=== PATIENT | female | born 1930 | race Caucasian/White ===

== ENCOUNTER 2017-11-07 09:59 | Inpatient (IN) | payer OTHER, MEDICARE ==
[~2017-11-07] VITALS: Ht 170.2 cm; Wt 70.8 kg
--- NOTE | ~2017-11-07 | H ---
[facility] [place] [address] HISTORY AND PHYSICAL Name: NORY LONGO Room #: 515-P [facility] IN M.R.#: [id number] Admission: 11/07/17 Attend Phys: Jeffery Lindsey MD Discharge: Date of : 31 Report #: [id number] THIS REPORT FOR: //name// CC: Jeffery Garcia DATE OF SERVICE: 11/07/2017 HISTORY OF PRESENT ILLNESS: This is an 87-year-old female who initially presented to [facility] ER after a fall at the grocery store. She reports turning quickly and somehow lost her balance, landing on her left side. She had immediate left upper extremity pain, which prompted her to present to the Emergency Department. She was diagnosed with a left humerus fracture and underwent ORIF on 10/31/2017. She is no weightbearing left upper extremity. Postoperatively, she went into acute respiratory failure. She required BiPAP initially. She was able to be titrated down to nasal cannula, which she is now on 2 liters. She also had a postoperative ileus. She was treated with conservative measures. She had an NG tube in place that has since been discontinued. She is able to tolerate a regular diet. She has had a bowel movement since that time with most recent small bowel movement this morning. Due to her generalized debility, she is now being admitted to an acute inpatient rehabilitation unit for further functional mobility. Premorbidly, the patient lives at home with her friend/roommate in a house. She was independent with all ADLs and she and her roommate share the IADL responsibilities. The patient utilized no assistive devices prior. She does report history of recurrent falls, she thinks at least 3 falls in the last 6 months. She is unsure what happened when she had these falls. She denies loss of consciousness or hitting her head with her fall. PAST MEDICAL HISTORY: Recurrent falls, hypertension, hyperlipidemia, degenerative joint disease, vitamin D deficiency, asthma, hypothyroidism, GERD, depression. HABITS: The patient is nonsmoker, nondrinker, no illicit drug use. CODE STATUS: Full code. ALLERGIES: No known drug allergies. CURRENT MEDICATIONS: Tylenol 650 q.4h. p.r.n., Norvasc 5 mg daily, Lipitor 10 mg daily, aspirin 81 mg daily, carvedilol 1 tablet twice a day, calcium 1200 mg daily, vitamin D 1 capsule daily, fish oil 1200 mg daily, Advair 250/50 one puff b.i.d., Pemberton 5/325 one to two tablets q.4h. p.r.n., Synthroid 1 tablet daily, multivitamin daily, omega 3 daily, Paxil mg daily, MiraLax daily, senna daily, triamcinolone cream topical twice a day to right upper extremity, Percocet 5/325 one tablet q.8h. p.r.n., Protonix 40 mg [address] [address] HISTORY AND PHYSICAL Name: NORY LONGO Room #: 515-P [facility] IN M.R.#: [id number] Admission: 11/07/17 Attend Phys: Jeffery Lindsey MD Discharge: Date of : 31 Report #: [id number] SOCIAL HISTORY: The patient lives in a house with her roommate and friend named Karen. There are 2 steps to enter from the front and 1 step to enter from the garage, zero steps once inside the house, all living is on 1 level. REVIEW OF SYSTEMS: The patient denies headache, dizziness, numbness, tingling, cough, shortness of air, chest pain, abdominal pain, nausea. She does report constipation and fullness in her abdomen. She denies dysuria or urine retention. She does report a rash to her right upper extremity. PHYSICAL EXAMINATION: VITAL SIGNS: Blood pressure 113/54, respirations 20, pulse 60, temperature 37.0, she is 93% oxygen on 2 liters per nasal cannula. HEENT: Head is normocephalic. EYES: EOMs are intact. No icterus. ENT: No sinus tenderness. CHEST: Lungs are diminished at bases. No crackle, no wheeze. CARDIAC: S1, S2. ABDOMEN: Bowel sounds are positive. She is soft. She is nontender, nondistended. GENITOURINARY: Deferred. SKIN: She does have a 6 x 6 inch area on her right upper extremity that is slightly raised red rough area. No tenderness with palpation. No drainage. EXTREMITIES: Functional range of motion right upper extremity and bilateral lower extremities, no clonus, able to lift bilateral lower extremities and to gravity. She has no lower extremity edema. Negative Homans sign. No tenderness to palpation. She does have a weakened disc recordist on the right. Left upper extremity is in a cast with sling. She does have good capillary refill in the left hand. Sensation intact. Able to move her fingers, transferring with mod assist. NEUROLOGIC: Pleasant affect. She is alert x 4, but does appear to be a poor historian. IMPRESSION: 1. Medical complexity with generalized debilitation. 2. Left upper extremity humerus fracture, status post open reduction internal fixation on 10/31/2017, no weightbearing left upper extremity. 3. Postoperative acute respiratory failure, improving. 4. Postoperative ileus, resolved. 5. Constipation. 6. Hypertension. 7. Hyperlipidemia. 8. Hypothyroidism. 9. Degenerative joint disease. 10. Recurrent falls. [facility] [address] [place] [address] HISTORY AND PHYSICAL Name: NORY LONGO Room #: 515-P ADM IN M.R.#: [id number] Admission: 11/07/17 Attend Phys: Jeffery Lindsey MD Discharge: Date of : 31 Report #: [id number] PLAN: The patient has been admitted to acute inpatient rehabilitation for physical and occupational therapies. We will also add in a speech therapy consult for cognition eval with the patient's goal to return back to her premorbid home setting. She has a followup with orthopedic services in 1 week. There are no dressing change orders. We are to keep current dressing in place until orthopedic evaluation. She will have hospitalist follow for her acute medical issues. Please see orders. <ELECTRONICALLY SIGNED> By: GREGORY Valverde 11/14/17 1110 1500 1620 GREGORY Valverde /juanjo
--- NOTE | ~2017-11-07 | H ---
[facility] [place] [address] HISTORY AND PHYSICAL Name: NORY LONGO Room #: 515-P [facility] IN M.R.#: [id number] Admission: 11/07/17 Attend Phys: Jeffery Lindsey MD Discharge: Date of : 31 Report #: [id number] THIS REPORT FOR: //name// CC: Jeffery Garcia DATE OF SERVICE: 11/07/2017 HISTORY OF PRESENT ILLNESS: The patient has been admitted for acute in-hospital inpatient rehabilitation. Please see the full dictation from Natasha Colbert yesterday. The patient had a fall, apparently had a grocery store and went to [facility] and was diagnosed with a left humerus fracture, undergoing ORIF 10/31/2017. She had complications postoperatively with acute respiratory failure, requiring BiPAP as well as postoperative ileus. She had an NG tube in place. The NG tube has been removed and she has been on tapering doses of oxygen, still on 2 liters. She is nonweightbearing left upper extremity. She is noted to have medical complexity with generalized debilitation and has been admitted for acute in-hospital inpatient rehabilitation. As far as past medical history, habits, code status, allergies, social history, please see the above note. She has been living in a house with her roommate, although she tells me that she actually lives by herself and that the lady friend is frequently over and closely involved. There are 2 steps in, apparently. She had a cane that she uses on occasion. MEDICATIONS: Please see the full medication listing. This includes vitamins, herbals, and supplements. REVIEW OF SYSTEMS: Did not offer any current complaints of chest pain, shortness of breath or abdominal discomfort. PHYSICAL EXAMINATION: GENERAL: Pleasant, somewhat verbose, thin, 87-year-old white female in no obvious distress. VITAL SIGNS: Blood pressure 129/58, temperature is 98.3, pulse 51, respirations 16, alert, pleasant. HEENT: Appeared to be benign. CHEST: Sounded clear to auscultation. She is currently on nasal prong O2, 2 liters. CARDIOVASCULAR: Sounded regular rate and rhythm. ABDOMEN: Bowel sounds positive, nontender. GENITOURINARY AND RECTAL: Deferred. EXTREMITIES: Left upper extremity is in a splint, short arm and can move the fingers and thumb. Functional range of motion of the right upper extremity without focal weakness. Lower extremities, no focal calf swelling. Strength is a grade 4 to 4-/5. She transfers with max assist[place] [address] HISTORY AND PHYSICAL Name: NORY LONGO Room #: 515-P [facility] IN ..#: [id number] Admission: 11/07/17 Attend Phys: Jeffery Lindsey MD Discharge: Date of : 31 Report #: [id number] assist. She has done some short distance ambulation with mod assist. ASSESSMENT: 1. Medical complexity with generalized debilitation. 2. Left upper extremity humerus fracture, status post open reduction and internal fixation on 10/31/2017, nonweightbearing. 3. Postoperative acute respiratory failure, improving. 4. Postoperative ileus, resolved. 5. Constipation. 6. Hypertension. 7. Hyperlipidemia. 8. Hypothyroidism. 9. Degenerative joint disease. 10. Recurrent falls. PLAN: The patient is seen for the post-admission physician evaluation. There are no relevant changes since the preadmission screening. Please see the above review of prior and current medical and functional conditions and comorbidities. Please see the patient's previous and current functional status. As far as risk of complication, she has the multiple medical comorbidities as noted above. Initial plan of care involves the interdisciplinary acute inpatient rehabilitation program with goal of maximizing her functional independence, so she can hopefully return back to her prior living situation. Measurable functional goals would be for her to become modified independent with basic mobility and ADLs. Nonweightbearing on that left upper extremity. Also to improve her overall endurance. Prognosis is reasonably good with estimated length of stay probably at least 10 days to 2 weeks. Potential barriers would include her multiple medical comorbidities and decreased functional status. The patient meets diagnostic criteria for an acute in-hospital inpatient rehabilitation stay. She meets the medical necessity criteria and we will have Internal Medicine closely involved as well as additional consultation as needed. She does have the tolerance for therapies and has appropriate discharge goals back to the home setting. <ELECTRONICALLY SIGNED> By: Jeffery Lindsey MD 11/18/17 1455 1227 1257 Jeffery Lindsey MD /[facility]
--- NOTE | ~2017-11-07 | HC ---
[facility] [place] [address] CONSULTATION Name: NORY LONGO Room #: 515-P [facility] IN M.R.#: [id number] Admission: 11/07/17 Attend Phys: Jeffery Lindsey MD Discharge: 11/21/17 Date of : 31 Report #: [id number] THIS REPORT FOR: //name// CC: Jeffery Lindsey [facility] DATE OF SERVICE: 11/08/2017 ATTENDING PHYSICIAN: Jeffery Lindsey MD. MUSIC HISTORIAN: Marco Van, PhD. CLINICAL PRESENTATION: The patient is an 87-year-old female admitted to the rehabilitation unit at [facility] for comprehensive inpatient rehabilitation program to improve functional mobility, activities of daily living and self-care and mental status secondary to deficits from medical complexity and generalized debility. She was initially admitted following a left upper extremity humerus fracture and is status post open reduction internal fixation. Diagnostic impressions at admission included postoperative acute respiratory failure, improving; postoperative ileus, resolved; constipation; hypertension; hyperlipidemia; hypothyroidism; degenerative joint disease and recurrent falls. A complete description of her medical condition and history can be found in her medical record. Neuropsychological consultation was requested to provide assistance in the assessment of cognitive and emotional status and to provide recommendations and services. Prior to this most recent event, she reports driving and living independently in her own home. She indicates having been independent with all instrumental activities of daily living. Memory of her fall was at a grocery store when she fell, injuring her arm. The patient completed a master's degree from the [employer]. 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 She reports a good social support network. The patient had not and has no children. TECHNIQUES UTILIZED: Clinical interview, review of medical records, staff consultation and behavioral observation, mini mental status exam 2 standard version, and verbal fluency assessment (letter and category). EXAMINATION FINDINGS: The patient was alert and cooperative with the assessment. There is no evidence of aphasia. She does not report auditory or visual hallucinations. There is no evidence of thought disorder. She accurately describes events surrounding her admission. Her symptoms include variability in energy. She does not report problems with sleep, appetite, depression or anxiety. No prior treatment for mood disorder is reported. [address] [address] CONSULTATION Name: NORY LONGO Room #: 515-P [facility] IN M.R.#: [id number] Admission: 11/07/17 Attend Phys: Jeffery Lindsey MD Discharge: 11/21/17 Date of : 31 Report #: [id number] Normal variability in memory and word finding is described. She reports that pain in her arm has been disruptive of sleep. Her performance on the MMSE 2 brief version is in the impaired range of function with a raw score of 12/16, T score 28. Percentile rank is 1. She was 3/3 for initial registration, 5/5 for orientation to time, 4/[address] and 0/3 for immediate recall of 3 items after a brief time delay and distraction. Performance on the MMSE 2 standard version is extremely low with a raw score of 21 of 30. She was 2/5 for serial sevens, 2/2 for naming, 1/1 for repetition, 3/3 for auditory comprehension. She could read and follow a single command. The patient had difficulty in copying a simple geometric design because of the awkwardness of her position as a result of having had the arm fracture. She was able to dictate a sentence. Performance in verbal fluency assessment was extremely low for letter fluency with a raw score of 10, T score 25 and percentile rank of 1. Category fluency improved with a raw score 22 and a T score of 31, which is at 3rd percentile. Overall, total verbal fluency was less than 1% with a raw score of 32 and a T score of 24. The patient is presenting with the decline in cognition. Deficits are noted with memory, concentration and verbal fluency, which suggests deficits in executive function. She does not report difficulties in cognition, which could indicate diminished insight. DIAGNOSTIC IMPRESSION: Neurocognitive disorder, unspecified, without behavior disorder - extent to be determined, likely in the mild to moderate range. RECOMMENDATIONS: The patient will likely require increased assistance with medication and nutrition upon her return home. A more thorough neuropsych assessment may be of benefit to clarify cognitive functioning. She reports having been very independent up until this most recent medical event. However, increased help will likely be necessary for her to maintain safety. The use of compensatory strategies may also aid her compensation. Thank you very much for allowing me to provide the consultation on this patient. <ELECTRONICALLY SIGNED> By: Marco Van, PhD 11/22/17 1400 1602 01 Marco Van, PhD /nt
--- NOTE | ~2017-11-07 | PLAN ---
[facility] [place] [address] REHAB UNIT PLAN OF CARE Name: NORY LONGO Room #: 515-P ADM IN M.R.#: [id number] Admission: 11/07/17 Attend Phys: Jeffery Lindsey MD Discharge: Date of : 31 Report #: [id number] THIS REPORT FOR: //name// CC: Jeffery Garcia DATE OF SERVICE: 11/10/2017 PROGRESS NOTE AND OVERALL PLAN OF CARE SUBJECTIVE: The patient is seen back today in followup. Nursing is concerned regarding a coarse cough. OBJECTIVE: VITAL SIGNS: Last recorded temperature is 37.2, pulse 60, respirations 18, blood pressure 170/70. She is now on 4 liters nasal prong O2. Breath sounds are somewhat decreased. She is in no distress. CARDIAC: Regular rate and rhythm. ABDOMEN: Bowel sounds positive, nontender. MUSCULOSKELETAL: Left upper extremity has the splint in place. She has been working in therapies with transfers, mod assist. Gait, min assist to 150 feet with a pyramid cane. There is no calf swelling, no palpable cord. Dependent for lower body dressing, max assist for upper body dressing. ASSESSMENT: 1. Medical complexity with generalized debilitation. 2. Left upper extremity humerus fracture, status post open reduction and internal fixation on 10/31/2017. Nonweightbearing. 3. Postoperative acute respiratory failure. She was on 2 liters and now is on 4 liters. Nursing notes a coarse cough. We will obtain a chest x-ray and have the nursing staff keep the hospitalist inform. 4. Postoperative ileus has resolved. 5. Constipation. 6. Hypertension. 7. Hyperlipidemia. 8. Hypothyroidism. 9. Degenerative joint disease. 10. Recurrent falls. PLAN: The overall plan of care is based on the preadmission screen, post-admission physician evaluation, and information garnered from therapy assessments. 1. Estimated length of stay is at least 10 days to 2 weeks pending progress. 2. Medical prognosis is reasonably good. 3. Anticipated interventions includes the interdisciplinary acute inpatient rehabilitation program with the goal of maximizing the patient's functional [address] [address] REHAB UNIT PLAN OF CARE Name: NORY LONGO Room #: 515-P [facility] IN M.R.#: [id number] Admission: 11/07/17 Attend Phys: Jeffery Lindsey MD Discharge: Date of : 31 Report #: [id number] independence. 4. Anticipated functional outcomes would be for the patient to become modified independent with transfers, mobility and ADLs, so she can return back to the home setting. 5. Discharge destination is back to the home setting. She does have a closely involved lady friend and in her house there are 2 steps in. 6. Expected therapy by discipline includes PT and OT as well as speech therapy. Anticipating 1 hour per day each five days a week throughout the duration of the acute inpatient rehabilitation stay. We may be able to decrease the speech therapy some in favor of more PT and OT. We will meet with the rehab therapy team tomorrow. We will also need to clarify with the therapy team regarding her Orthopedic followup. <ELECTRONICALLY SIGNED> By: Jeffery Lindsey MD 11/18/17 1455 0803 0900 Jeffery Lindsey MD /nt
[2017-11-07 14:00] VITALS: BP 113/54
[2017-11-07] MEDS ORDERED: TYLENOL325 MG PO (15:49)
[2017-11-07] MEDS ORDERED: NORVASC5 MG PO (15:50)
[2017-11-07] MEDS ORDERED: LIPITOR 20 MG T20 M1 PO (15:51)
[2017-11-07] MEDS ORDERED: BAYER CHEWABLE81 MG PO (15:52)
[2017-11-07] MEDS ORDERED: [UNRECOGNIZED DRUG - OTHER] TOP (15:59)
[2017-11-07] MEDS ORDERED: TUMS PO (16:01)
[2017-11-07] MEDS ORDERED: CARVEDILOL3.125 MG PO (16:04)
[2017-11-07] MEDS ORDERED: VITAMIN D2000 UNIT PO (16:07)
[2017-11-07] MEDS ORDERED: FISH OIL 1,001000 M2 PO (16:08)
[2017-11-07] MEDS ORDERED: ADVAIR HFA 230M12 GM INH (16:12)
[2017-11-07] MEDS ORDERED: NORCO 5-325 TA1 EACH PO (16:15)
[2017-11-07] MEDS ORDERED: SYNTHROID100 MC1 PO (16:23)
[2017-11-07] MEDS ORDERED: UNICOMPLEX M TA1 TA1 PO (16:23)
[2017-11-07] MEDS ORDERED: PERCOCET PO (16:25)
[2017-11-07] MEDS ORDERED: PROTONIX40 M1 PO (16:25)
[2017-11-07] MEDS ORDERED: MIRALAX17 GM PO (16:27)
[2017-11-07] MEDS ORDERED: PAXIL10 MG PO (16:27)
[2017-11-07] MEDS ORDERED: SENNA8.6 MG PO (16:28)
[2017-11-07] MEDS ORDERED: TRIAMCINOLONE A80 G2 TOP (16:30)
[2017-11-07 21:00] VITALS: BP 147/64
[2017-11-08 06:30] LABS: HEMATOCRIT 29.6 % (37.0-47.0); HEMOGLOBIN 10.1 gm/dL (12.0-15.0); MCH 31.7 pg (26.0-34.0); MCHC 33.9 g/dL (28.0-37.0); MCV 93.3 fL (80.0-100.0); RBC 3.17 mil/uL (4.20-5.00); RDW 13.4 % (10.5-14.5)
[2017-11-08 06:43] LABS: CALCIUM 9.4 mg/dL (8.5-10.1); CREATININE 0.7 mg/dL (0.6-1.0)
[2017-11-08 07:30] VITALS: BP 129/58
[2017-11-08 21:02] VITALS: BP 109/70
[2017-11-09 16:38] VITALS: BP 146/64
[2017-11-09 21:22] VITALS: BP 170/70
[2017-11-10 07:30] VITALS: BP 145/69
[2017-11-10 15:05] VITALS: BP 116/59
[2017-11-10 19:28] VITALS: BP 126/60
[2017-11-11 08:00] VITALS: BP 151/72
[2017-11-11 17:00] VITALS: BP 144/63
[2017-11-11 19:30] VITALS: BP 135/55
[2017-11-12 08:15] VITALS: BP 180/71
[2017-11-12 11:09] VITALS: BP 119/48
[2017-11-12 20:25] VITALS: BP 138/66
[2017-11-13 07:33] VITALS: BP 135/58
[2017-11-13 20:20] VITALS: BP 136/62
[2017-11-14 06:17] LABS: ABSOLUTE NEUTROPHILS 4.1 thou/uL (1.4-8.2); BASOPHILS 0.9 % (0.0-2.0); EOSINOPHILS 6.1 % (0.0-3.0); HEMATOCRIT 29.5 % (37.0-47.0); HEMOGLOBIN 10.3 gm/dL (12.0-15.0); LYMPHOCYTES 22.8 % (24.0-44.0); MCH 32.5 pg (26.0-34.0); MCHC 34.9 g/dL (28.0-37.0); MCV 93.1 fL (80.0-100.0); MONOCYTES 9.7 % (1.0-8.0); PLATELET COUNT 234 thou/uL (150-400); POLYS 60.5 % (36.0-66.0); RBC 3.17 mil/uL (4.20-5.00); WBC 6.8 thou/uL (4.0-11.0)
[2017-11-14 06:29] LABS: CALCIUM 9.8 mg/dL (8.5-10.1); CREATININE 0.7 mg/dL (0.6-1.0); MAGNESIUM 1.6 mg/dL (1.8-2.4); POTASSIUM 4.1 mmol/L (3.5-5.1)
[2017-11-14 07:10] VITALS: BP 148/64
[2017-11-14 20:19] VITALS: BP 137/55
[2017-11-15 07:30] VITALS: BP 158/73
[2017-11-15 16:38] VITALS: BP 160/51
[2017-11-15 19:40] VITALS: BP 133/45
[2017-11-16 19:28] VITALS: BP 141/55
[2017-11-17 07:21] VITALS: BP 140/70
[2017-11-17 15:32] VITALS: BP 110/70
[2017-11-17 20:40] VITALS: BP 150/61
[2017-11-18 07:30] VITALS: BP 146/62
[2017-11-18 19:45] VITALS: BP 134/82
[2017-11-19 08:30] VITALS: BP 143/69
[2017-11-19 19:34] VITALS: BP 134/67
[2017-11-20 06:12] LABS: ABSOLUTE NEUTROPHILS 3.2 thou/uL (1.4-8.2); BASOPHILS 0.8 % (0.0-2.0); HEMATOCRIT 34.3 % (37.0-47.0); HEMOGLOBIN 11.5 gm/dL (12.0-15.0); LYMPHOCYTES 27.5 % (24.0-44.0); MCH 31.6 pg (26.0-34.0); MCHC 33.4 g/dL (28.0-37.0); MCV 94.5 fL (80.0-100.0); MONOCYTES 9.9 % (1.0-8.0); PLATELET COUNT 201 thou/uL (150-400); POLYS 53.8 % (36.0-66.0); RBC 3.63 mil/uL (4.20-5.00); RDW 14.5 % (10.5-14.5); WBC 5.9 thou/uL (4.0-11.0)
[2017-11-20 06:20] LABS: CALCIUM 10.3 mg/dL (8.5-10.1); CREATININE 0.8 mg/dL (0.6-1.0); MAGNESIUM 1.7 mg/dL (1.8-2.4); POTASSIUM 4.2 mmol/L (3.5-5.1)
[2017-11-20 08:38] VITALS: BP 183/68
[2017-11-20] MEDS ORDERED: COLACE100 MG PO (09:25)
[2017-11-20] MEDS ORDERED: LIDOPATCH1 EACH TRANSDERM (09:25)
[2017-11-20] MEDS ORDERED: CLARITIN10 MG PO (09:25)
[2017-11-20] MEDS ORDERED: MUCINEX600 MG PO (09:25)
[2017-11-20 10:42] VITALS: BP 183/68
[2017-11-20 20:00] VITALS: BP 139/52
[2017-11-21 09:38] VITALS: BP 168/78
[2017-11-21 10:28] VITALS: BP 183/68
== END 2017-11-21 10:02 | disposition home health service (06) | DRG 562 ==
LOC: ENTRNSPT 11-21 09:20 → EDTRNSPTSTS 11-21 09:21
PROVIDERS: Nurse Practitioner; Nurse Practitioner Family
DX: S42.342A Displaced spiral fracture of shaft of humerus, left arm, initial encounter for closed fracture (principal); J96.01 Acute respiratory failure with hypoxia; S22.32XA Fracture of one rib, left side, initial encounter for closed fracture; K56.7 Ileus, unspecified; J98.11 Atelectasis; K59.00 Constipation, unspecified; R53.81 Other malaise; E78.5 Hyperlipidemia, unspecified; E03.9 Hypothyroidism, unspecified; M19.90 Unspecified osteoarthritis, unspecified site; R29.6 Repeated falls; R41.9 Unspecified symptoms and signs involving cognitive functions and awareness; J45.909 Unspecified asthma, uncomplicated; K21.9 Gastro-esophageal reflux disease without esophagitis; I70.0 Atherosclerosis of aorta; F32.9 Major depressive disorder, single episode, unspecified; W18.39XA Other fall on same level, initial encounter; M81.0 Age-related osteoporosis without current pathological fracture; Z96.643 Presence of artificial hip joint, bilateral; Z96.653 Presence of artificial knee joint, bilateral; I10 Essential (primary) hypertension; Z60.2 Problems related to living alone; E83.42 Hypomagnesemia; Z85.72 Personal history of non-Hodgkin lymphomas; Y93.89 Activity, other specified; Y92.512 Supermarket, store or market as the place of occurrence of the external cause; Y99.8 Other external cause status
CPT/HCPCS: 10112